=== PATIENT | male | born 1990 ===

== ENCOUNTER 2022-01-14 13:59 | Emergency (ER) | payer OTHER ==
[~2022-01-14] VITALS: Ht 170.2 cm; Wt 105.7 kg
[2022-01-14] MEDS ORDERED: NAPROXEN375 MG PO (17:29)
[2022-01-14] MEDS ORDERED: CLINDAMYCIN HC300 MG PO (17:29)
[2022-01-14] MEDS ORDERED: INTESTINEX680 M1 PO (17:29)
[2022-01-14] MEDS ORDERED: ACETAMINOPHEN650 M2 (22:12)
== END 2022-01-14 17:49 | disposition home or self-care (01) ==
LOC: ER 13:59
DX: L02.212 Cutaneous abscess of back [any part, except buttock and flank] (principal)